=== PATIENT | female | born 1980 | race Caucasian/White ===

== ENCOUNTER 2016-10-21 16:38 | Emergency (ER) | payer OTHER ==
[~2016-10-21] VITALS: Ht 165.1 cm; Wt 74.8 kg
[2016-10-21 17:18] LABS: MEAN PLATELET VOLUME 9.4 FL (7.4-10.4); RED BLOOD COUNT 3.49 10^6/uL (4.35-5.85); RED CELL DISTRIBUTION WIDTH 13.6 % (10.0-14.5); WHITE BLOOD COUNT 11.1 10^3/uL (4.3-11.0)
[2016-10-21] MEDS ORDERED: TETANUS,DIPTH,PERTUSS P/F (BOOSTRIX) 0.5 ML VIAL IM ONE (17:18)
[2016-10-21] MEDS ORDERED: ceFAZolin 1,000 MG (ANCEF) VIAL ONE (17:19)
[2016-10-21] MEDS ORDERED: ceFAZolin 2 GM/50 ML NS 50 ML IV ONE (17:30)
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
[2016-10-21 17:34] LABS: ALANINE AMINOTRANSFERASE 29 U/L (0-55); ALBUMIN 3.1 G/DL (3.2-4.5); ANION GAP 10 MMOL/L (5-14); ASPARTATE AMINO TRANSFERASE 23 U/L (5-34); BILIRUBIN,DIRECT 0.1 MG/DL (0.0-0.3); BILIRUBIN,INDIRECT 0.1 MG/DL; BILIRUBIN,TOTAL 0.2 MG/DL (0.1-1.0); BLOOD UREA NITROGEN 8 MG/DL (7-18); BUN/CREATININE RATIO 13; CALCIUM 8.2 MG/DL (8.5-10.1); CARBON DIOXIDE 17 MMOL/L (21-32); CHLORIDE 111 MMOL/L (98-107); CREATININE SERUM 0.62 MG/DL (0.60-1.30); GFR ESTIMATED > 60; GLUCOSE 121 MG/DL (70-105); POTASSIUM 3.6 MMOL/L (3.6-5.0); SODIUM 138 MMOL/L (135-145); TOTAL PROTEIN 5.7 G/DL (6.4-8.2)
[2016-10-21] MEDS ORDERED: fentaNYL INJECTION 100 MCG/2 ML AMP ONE (17:36)
[2016-10-21 17:38] LABS: ALCOHOL < 10 MG/DL (<10)
[2016-10-21] MEDS ORDERED: fentaNYL INJECTION 100 MCG/2 ML AMP IVP ONE ×4 (17:45→19:15)
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
[2016-10-21 17:52] LABS: BILIRUBIN,URINE NEGATIVE (NEGATIVE); KETONES,URINE NEGATIVE (NEGATIVE); LEUKOCYTE ESTERASE ,URINE NEGATIVE (NEGATIVE); NITRITE,URINE NEGATIVE (NEGATIVE); PH,URINE 6 (5-9); PROTEIN,URINE NEGATIVE (NEGATIVE); UROBILINOGEN,URINE NORMAL (NORMAL)
[2016-10-21 18:01] LABS: YEAST,URINE MODERATE /HPF
[2016-10-21] MEDS ORDERED: NS IV 1000 ML 1,000 ML IV ONE ×2 (18:18→18:44)
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
[2016-10-21] MEDS ORDERED: AMPICILLIN/SULBACTAM INJECTION 3 GM in NS (IVPB) 100 ML IV ONE (18:45)
[2016-10-21 19:21] VITALS: BP 147/90
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
== END 2016-10-21 19:21 | disposition short-term general hospital (02) ==
LOC: EDUNIT# 16:38 → ER 16:52
DX: O9A.211 Injury, poisoning and certain other consequences of external causes complicating pregnancy, first trimester (principal); S92.101A Unspecified fracture of right talus, initial encounter for closed fracture; Z3A.14 14 weeks gestation of pregnancy; V44.5XXA Car driver injured in collision with heavy transport vehicle or bus in traffic accident, initial encounter
CPT/HCPCS: 29515; 71010; 73565; 73610; 76815; 80048; 80076; 80320; 81000; 84703; 85027; 86850; 86900; 86901; 90715

== ENCOUNTER 2017-01-23 09:20 | Outpatient (CLI) | payer OTHER, MEDICAID ==
[2017-01-23] VITALS (13 sets, daily range): BP systolic 112–137; BP diastolic 68–79
[~2017-01-23] VITALS: Ht 165.1 cm; Wt 74.9 kg
[2017-01-23] MEDS ORDERED: D5 LR IV SOLUTION 1,000 ML IV ONE (10:03)
[2017-01-23] MEDS ORDERED: MAGNESIUM SULFATE DRIP 500 ML IV ONE (10:33)
[2017-01-23] MEDS ORDERED: MAGNESIUM 4 GM/100 ML IVPB 100 ML IV ONE ×2 (10:33→11:00)
[2017-01-23 10:37] LABS: BASOPHILS # (AUTO) 0.1 10^3/uL (0.0-0.1); BASOPHILS % (AUTO) 0 % (0-10); EOSINOPHILS # (AUTO) 0.2 10^3/uL (0.0-0.3); EOSINOPHILS % (AUTO) 1 % (0-10); LYMPHOCYTES # (AUTO) 1.3 X 10^3 (1.0-4.0); LYMPHOCYTES % (AUTO) 8 % (12-44); MEAN CORPUSCULAR HEMOGLOBIN 28 PG (25-34); MEAN CORPUSCULAR HGB CONC 32 G/DL (32-36); MEAN CORPUSCULAR VOLUME 88 FL (80-99); MEAN PLATELET VOLUME 9.7 FL (7.4-10.4); MONOCYTES # (AUTO) 1.4 X 10^3 (0.0-1.0); MONOCYTES % (AUTO) 9 % (0-12); NEUTROPHILS # (AUTO) 12.6 X 10^3 (1.8-7.8); NEUTROPHILS % (AUTO) 81 % (42-75); PLATELET COUNT 326 10^3/uL (130-400); RED BLOOD COUNT 3.53 10^6/uL (4.35-5.85); RED CELL DISTRIBUTION WIDTH 15.9 % (10.0-14.5); WHITE BLOOD COUNT 15.5 10^3/uL (4.3-11.0)
[2017-01-23] MEDS ORDERED: MAGNESIUM SULFATE DRIP 500 ML IV SCH (11:00)
[2017-01-23] MEDS ORDERED: AZITHROMYCIN INJECTION 500 MG in NS (IVPB) 250 ML IV ONE (11:00)
[2017-01-23 11:11] LABS: BAND NEUTROPHILS 3 %; BASOPHILS % (MANUAL) 1 %; EOSINOPHILS % (MANUAL) 1 %; LYMPHOCYTES % (MANUAL) 15 %; NEUTROPHILS % (MANUAL) 73 %; REACTIVE LYMPHOCYTES 2 %
[2017-01-23 11:12] LABS: POIKILOCYTOSIS SLIGHT
[2017-01-23 11:13] LABS: ANISOCYTOSIS MODERATE
[2017-01-23 11:20] LABS: ALANINE AMINOTRANSFERASE 20 U/L (0-55); ANION GAP 9 MMOL/L (5-14); ASPARTATE AMINO TRANSFERASE 19 U/L (5-34); BILIRUBIN,TOTAL 0.4 MG/DL (0.1-1.0); BLOOD UREA NITROGEN 9 MG/DL (7-18); BUN/CREATININE RATIO 16; CALCIUM 8.6 MG/DL (8.5-10.1); CARBON DIOXIDE 21 MMOL/L (21-32); CHLORIDE 108 MMOL/L (98-107); CREATININE SERUM 0.55 MG/DL (0.60-1.30); GFR ESTIMATED > 60; GLUCOSE 87 MG/DL (70-105); POTASSIUM 3.7 MMOL/L (3.6-5.0); SODIUM 138 MMOL/L (135-145); TOTAL PROTEIN 6.1 GM/DL (6.4-8.2)
[2017-01-23] MEDS ORDERED: AZITHROMYCIN 250 MG TAB (ZITHROMAX) PO NR (11:28)
[2017-01-23] MEDS ORDERED: MAGNESIUM 2 GM/50 ML IVPB 50 ML IV ONE (13:24)
[2017-01-23] MEDS ORDERED: MAGNESIUM 1 GM/100 ML IVPB 100 ML IV SCH (13:45)
[2017-01-23] MEDS ORDERED: BUTORPHANOL INJ 2 MG/ML (STADOL) VIAL IV ONE (13:45)
--- NOTE | 2017-01-23 13:51 | Discharge Instructions ---
Discharge Instructions Discharge Medications New, Converted or Re-Newed RX: Other Orders-Post D/C & Referrals patient is being transferred to the care of Dr. Bandar Bradford at [facility] in [place] secondary to labor with dichorionic diamniotic twins and with likely ruptured membranes and possible endomyometritis RANDY COBOS MD Jan 23, 2017 13:51
--- NOTE | 2017-01-23 13:58 | History & Physical ---
History and Physical Date Seen by Provider: Jan 23, 2017 Time Seen by Provider: 13:52 this serves as an admit H&P as well as a discharge summary this patient is a 36-year-old white female patient just past 26 weeks gestation with dichorionic diamniotic twins. She is seeing Dr. Bandar Bradford high-risk OB secondary to oligohydramnios for twin B. He was recently admitted for observation at [facility] secondary to vaginal bleeding. She was in the hospital for 3 or 4 days and was deepened release yesterday. He was seen in my clinic today for complaint of vaginal bleeding and no contractions. Was sent to labor and delivery where she was found be bree every 2 minutes her cervix is dilated to 3 cm. She was started on IV magnesium with a 4 g bolus and then running at 2 g an hour which did space out her contractions for a while. Her contractions are picked up. She has been having fairly copious fluid from the vagina which nitrazine was positive and fern test was obtained that was negative. One note was that there were exceedingly high number of white blood cells on the slide. During exam is noted that there is a odor to the discharge consistent with an endomyometritis. Patient complains of increasing pain and pressure with the contractions. Patient's care was reviewed with Dr. Bandar Bradford who agreed to accept the patient in transfer. We did increase her magnesium to 4 g an hour after giving additional 2 g bolus. She was given 500 mg of azithromycin on admission. Patient reports having received IM steroids injections 3 while at [place] over the weekend. Allergies are penicillin Medications are per the [facility] Past medical history, past surgical history, genetic history, family history, social histories are per the antepartum record HEENT exam is normal patient does appear tired and uncomfortable Supple no lymphadenopathy. The abdomen is gravid soft and nontender. Extremities show no clubbing cyanosis. There is no Homans sign. Pelvic exam reveals a cervix 2-37 Ms. dilated, 50 percent effaced, -1 to -2 station with vertex presentation no membranes are palpable. monitor shows contractions now every 2-3 minutes patient is experiencing discomfort and pressure with contractions. We'll heart rates are normal Assessment and plan 26+ week intrauterine with dichorionic diamniotic twins in a patient with oligohydramnios for twin B likely with endomyometritis and possibly with premature rupture membranes obviously in labor not responding to IV magnesium. Dr. Bradford of [facility] has agreed to accept patient in transfer and that is being arranged currently. 26+ week intrauterine with dichorionic diamniotic twins in labor complicated by oligohydramnios for twin B, and with likely rupture membranes and with possible endomyometritis Allergies and Home Medications Allergies Coded Allergies: Penicillins (Verified Allergy, Unknown, 05/23/07) RANDY COBOS MD Jan 23, 2017 1:58 pm
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
== END 2017-01-23 14:35 | disposition home or self-care (01) ==
LOC: WSo 09:20 → LDRP 09:20 → WSo 14:35
PROVIDERS: ATTEND Obstetrics & Gynecology
DX: O30.042 Twin pregnancy, dichorionic/diamniotic, second trimester (principal); Z3A.26 26 weeks gestation of pregnancy; O41.02X1 Oligohydramnios, second trimester, fetus 1; O60.02 Preterm labor without delivery, second trimester; N71.9 Inflammatory disease of uterus, unspecified
CPT/HCPCS: 36415; 76815; 80053; 85007; 85027; 89060; 96361; 96374; 96375; 96376; 99214

== ENCOUNTER 2018-03-02 16:40 | Emergency (ER) | payer BC, MEDICAID, OTHER ==
[~2018-03-02] VITALS: Ht 165.1 cm; Wt 74.9 kg
[2018-03-02] MEDS ORDERED: KETOROLAC 30 MG/ML VIAL IVP ONE (17:00)
[2018-03-02] MEDS ORDERED: fentaNYL INJECTION 100 MCG/2 ML AMP IVP ONE (17:00)
[2018-03-02] MEDS ORDERED: ONDANSETRON 4 MG/2 ML (SDV) Z0FRAN IVP ONE (17:00)
--- NOTE | 2018-03-02 17:04 | ED Abdominal Pain ---
General Chief Complaint: Abdominal/GI Problems Stated Complaint: NASUEA, ABD PAIN Source of Information: Patient Exam Limitations: No Limitations History of Present Illness Date Seen by Provider: Mar 02, 2018 Time Seen by Provider: 17:02 Initial Comments To ER per private vehicle with reports of epigastric abdominal pain radiating through to her back associated with nausea and vomiting. She's had this about a year ago. It seemed to go away. Last night she had some pain in the mid back that radiated through to her epigastric region with a bit of nausea. At about 2 PM today she had a grilled cheese sandwich and shortly thereafter had intense pain nausea and vomiting. After the vomiting she did feel somewhat better but she still is nauseous and with the pain. Timing/Duration: 4-6 Hours Severity/Quality: Moderate Location: Epigastric Radiation: No Radiation Activities at Onset: None Associated Symptoms: Nausea/Vomiting Allergies and Home Medications Allergies Coded Allergies: Penicillins (Verified Allergy, Unknown, 03/02/18) Home Medications Ciprofloxacin HCl 500 Mg Tablet, 500 MG PO BID Prescribed by: MERARI HAYES on 03/02/181752 Hydrocodone/Acetaminophen 1 Each Tablet, 1 EACH PO Q4H PRN for PAIN-MODERATE Prescribed by: MERARI HAYES on 03/02/181752 Metronidazole 500 Mg Tablet, 500 MG PO TID Prescribed by: MERARI HAYES on 03/02/181752 Ondansetron 8 Mg Tab.rapdis, 8 MG PO Q6H PRN for NAUSEA/VOMITING-1ST LINE Prescribed by: MERARI HAYES on 03/02/181752 Patient Home Medication List Home Medication List Reviewed: Yes Review of Systems Review of Systems Constitutional: see HPI EENTM: No Symptoms Reported Respiratory: No Symptoms Reported Cardiovascular: No Symptoms Reported Gastrointestinal: See HPI, Abdominal Pain, Nausea Genitourinary: No Symptoms Reported Musculoskeletal: no symptoms reported Skin: no symptoms reported Psychiatric/Neurological: No Symptoms Reported Endocrine: No Symptoms Reported Past Vggqmvg-Uklolc-Qvesaw Hx Patient Social History Alcohol Use: Denies Use Recreational Drug Use: No Smoking Status: Never a Smoker 2nd Hand Smoke Exposure: No Recent Foreign Travel: No Contact w/Someone Who Travel: No Recent Hopitalizations: No Physical Abuse: No Sexual Abuse: No Mistreated: No Fear: No Immunizations Up To Date Tetanus Booster (TDap): Unknown Date of Influenza Vaccine: Feb 12, 2018 Past Medical History Surgeries: Yes Adenoidectomy, Section, Orthopedic, Tonsillectomy Respiratory: No Cardiac: No Neurological: No Reproductive Disorders: No Gastrointestinal: No Musculoskeletal: No Endocrine: No Psychosocial: No Integumentary: No Blood Disorders: No Family Medical History No Pertinent Family Hx Physical Exam Vital Signs Vital Signs - First Documented 03/02/18 16:43 Temp 98.3 Pulse 118 Resp 16 B/P (MAP) 152/102 (119) Pulse Ox 99 Capillary Refill : Height/Weight/BMI Height: 5'5.00" Weight: 165lbs. 2.0oz. 74.708166gz; 27.5 BMI Method:Stated General Appearance: WD/WN, no apparent distress HEENT: PERRL/EOMI, normal ENT inspection Neck: non-tender, full range of motion Respiratory: normal breath sounds, no respiratory distress, no accessory muscle use Cardiovascular: regular rate, rhythm, no murmur Gastrointestinal: normal bowel sounds, soft, tenderness Neurologic/Psychiatric: alert, normal mood/affect, oriented x 3 Skin: normal color, warm/dry Progress/Results/Core Measures Results/Orders Lab Results Laboratory Tests Test 03/02/18 16:45 03/02/18 16:55 Range/Units Urine Color YELLOW Urine Clarity VERY CLOUDY H Urine pH 5 5-9 Urine Specific [place] 1.025 H 1.016-1.022 Urine Protein 1+ H NEGATIVE Urine Glucose (UA) NEGATIVE NEGATIVE Urine Ketones 1+ H NEGATIVE Urine Nitrite NEGATIVE NEGATIVE Urine Bilirubin 1+ H NEGATIVE Urine Urobilinogen 1 NORMAL MG/DL Urine Leukocyte Esterase 1+ H NEGATIVE Urine RBC (Auto) NEGATIVE NEGATIVE Urine RBC NONE /HPF Urine WBC 0-2 /HPF Urine Squamous Epithelial Cells 10-25 H /HPF Urine Crystals NONE /LPF Urine Bacteria TRACE /HPF Urine Casts NONE /LPF Urine Mucus NEGATIVE /LPF Urine Culture Indicated NO White Blood Count 10.2 4.3-11.0 10^3/uL Red Blood Count 5.06 4.35-5.85 10^6/uL Hemoglobin 13.4 11.5-16.0 G/DL Hematocrit 40 35-52 % Mean Corpuscular Volume 78 L 80-99 FL Mean Corpuscular Hemoglobin 27 25-34 PG Mean Corpuscular Hemoglobin Concent 34 32-36 G/DL Red Cell Distribution Width 15.8 H 10.0-14.5 % Platelet Count 361 130-400 10^3/uL Mean Platelet Volume 9.4 7.4-10.4 FL Neutrophils (%) (Auto) 78 H 42-75 % Lymphocytes (%) (Auto) 16 12-44 % Monocytes (%) (Auto) 5 0-12 % Eosinophils (%) (Auto) 1 0-10 % Basophils (%) (Auto) 0 0-10 % Neutrophils # (Auto) 7.9 H 1.8-7.8 X 10^3 Lymphocytes # (Auto) 1.6 1.0-4.0 X 10^3 Monocytes # (Auto) 0.5 0.0-1.0 X 10^3 Eosinophils # (Auto) 0.1 0.0-0.3 10^3/uL Basophils # (Auto) 0.0 0.0-0.1 10^3/uL Sodium Level 139 135-145 MMOL/L Potassium Level 3.5 L 3.6-5.0 MMOL/L Chloride Level 105 98-107 MMOL/L Carbon Dioxide Level 23 21-32 MMOL/L Anion Gap 11 5-14 MMOL/L Blood Urea Nitrogen 7 7-18 MG/DL Creatinine 0.75 0.60-1.30 MG/DL Estimat Glomerular Filtration Rate > 60 BUN/Creatinine Ratio 9 Glucose Level 113 H 70-105 MG/DL Calcium Level 9.2 8.5-10.1 MG/DL Corrected Calcium 8.9 8.5-10.1 MG/DL Total Bilirubin 0.7 0.1-1.0 MG/DL Aspartate Amino Transf (AST/SGOT) 53 H 5-34 U/L Alanine Aminotransferase (ALT/SGPT) 35 0-55 U/L Alkaline Phosphatase 139 H 40-136 U/L Total Protein 7.6 6.4-8.2 GM/DL Albumin 4.4 3.2-4.5 GM/DL Lipase 34 8-78 U/L My Orders Orders - MERARI HAYES APRN Cbc With Automated Diff (03/02/18 17:00) Comprehensive Metabolic Panel (03/02/18 17:00) Lipase (03/02/18 17:00) Ua Culture If Indicated (03/02/18 17:00) Iv Heplock-Insert (Order) (03/02/18 17:00) Ketorolac Injection (Toradol Injection) (03/02/18 17:00) Ondansetron Injection (Zofran Injectio (03/02/18 17:00) Fentanyl Injection (Sublimaze Injection (03/02/18 17:00) Us Gallbladder [id number] (03/02/18 17:05) Medications Given in ED Current Medications Medications Dose Ordered Sig/Myrna Route Start Time Stop Time Status Last Admin Dose Admin Fentanyl Citrate 50 mcg ONCE ONCE IVP 03/02/18 17:00 03/02/18 17:01 DC 03/02/18 17:08 50 MCG Ketorolac Tromethamine 30 mg ONCE ONCE IVP 03/02/18 17:00 03/02/18 17:01 DC 03/02/18 17:08 30 MG Ondansetron HCl 8 mg ONCE ONCE IVP 03/02/18 17:00 03/02/18 17:01 DC 03/02/18 17:07 8 MG Vital Signs/I&O 03/02/18 03/02/18 16:43 18:15 Temp 98.3 Pulse 118 80 Resp 16 16 B/P (MAP) 152/102 (119) 108/88 (95) Pulse Ox 99 100 Departure Communication (Admissions) I spoke with Dr. Gandhi and I will have the patient follow-up with him next week. She'll call his office Monday for an appointment. Impression Primary Impression: Cholelithiasis Disposition: 01 HOME, SELF-CARE Condition: Stable Departure-Patient Inst. Decision time for Depature: 17:26 Referrals: ELENITA MONTELONGO BRETT D DO JENKINS, XAVIER M MD KIDO, TAKAAKI MD ORENDER, JACQUELINE S DO (PCP/Family) Primary Care Physician Patient Instructions: Gallstones Add. Discharge Instructions: 1. Clear liquids only for the next 24 hours. After that, a very bland diet no greasy foods no spicy foods and no milk products. Call Dr. Gandhi office on Monday for an appointment next week area (you may see any surgeon you would like, Dr. Gandhi is on-call and that's who I spoke to today about you). Pain medication nausea medication and antibiotics as directed in the meantime. Return to ER for any fevers or uncontrollable nausea vomiting or intolerable pain. All discharge instructions reviewed with patient and/or family. Voiced understanding. Scripts Metronidazole (Flagyl) 500 Mg Tablet 500 MG PO TID, #15 TAB Prov: MERARI HAYES APRN 03/02/18 Ciprofloxacin HCl (Cipro) 500 Mg Tablet 500 MG PO BID, #10 TAB Prov: MERARI HAYES APRN 03/02/18 Hydrocodone/Acetaminophen ([place] 5-325 Tablet) 1 Each Tablet 1 EACH PO Q4H PRN for PAIN-MODERATE MDD 10, #30 TAB Prov: MERARI HAYES APRN 03/02/18 Ondansetron (Zofran Odt) 8 Mg Tab.rapdis 8 MG PO Q6H PRN for NAUSEA/VOMITING-1ST LINE, #20 TAB Prov: MERARI HAYES APRN 03/02/18 Copy Copies To 1: HUSSAIN GANDHI MD Copies To 2: NADIA MAYA PETER J APRN Mar 02, 2018 17:04
[2018-03-02 17:06] LABS: CLARITY,URINE VERY CLOUDY; COLOR,URINE YELLOW; GLUCOSE, URINE (UA) NEGATIVE (NEGATIVE); KETONES,URINE 1+ (NEGATIVE); LEUKOCYTE ESTERASE ,URINE 1+ (NEGATIVE); NITRITE,URINE NEGATIVE (NEGATIVE); PH,URINE 5 (5-9); PROTEIN,URINE 1+ (NEGATIVE); UROBILINOGEN,URINE 1 MG/DL (NORMAL)
[2018-03-02 17:07] LABS: BASOPHILS % (AUTO) 0 % (0-10); EOSINOPHILS # (AUTO) 0.1 10^3/uL (0.0-0.3); EOSINOPHILS % (AUTO) 1 % (0-10); HEMATOCRIT 40 % (35-52); HEMOGLOBIN 13.4 G/DL (11.5-16.0); LYMPHOCYTES # (AUTO) 1.6 X 10^3 (1.0-4.0); LYMPHOCYTES % (AUTO) 16 % (12-44); MEAN CORPUSCULAR HEMOGLOBIN 27 PG (25-34); MEAN CORPUSCULAR HGB CONC 34 G/DL (32-36); MEAN CORPUSCULAR VOLUME 78 FL (80-99); MEAN PLATELET VOLUME 9.4 FL (7.4-10.4); MONOCYTES # (AUTO) 0.5 X 10^3 (0.0-1.0); MONOCYTES % (AUTO) 5 % (0-12); NEUTROPHILS # (AUTO) 7.9 X 10^3 (1.8-7.8); NEUTROPHILS % (AUTO) 78 % (42-75); PLATELET COUNT 361 10^3/uL (130-400); RED BLOOD COUNT 5.06 10^6/uL (4.35-5.85); RED CELL DISTRIBUTION WIDTH 15.8 % (10.0-14.5); WHITE BLOOD COUNT 10.2 10^3/uL (4.3-11.0)
[2018-03-02 17:17] LABS: BACTERIA,URINE TRACE /HPF; BILIRUBIN,URINE 1+ (NEGATIVE); WBC,URINE 0-2 /HPF
[2018-03-02 17:19] LABS: ALANINE AMINOTRANSFERASE 35 U/L (0-55); ALBUMIN 4.4 GM/DL (3.2-4.5); ALKALINE PHOSPHATASE 139 U/L (40-136); BILIRUBIN,TOTAL 0.7 MG/DL (0.1-1.0); BUN/CREATININE RATIO 9; CALCIUM 9.2 MG/DL (8.5-10.1); CARBON DIOXIDE 23 MMOL/L (21-32); CHLORIDE 105 MMOL/L (98-107); CREATININE SERUM 0.75 MG/DL (0.60-1.30); GFR ESTIMATED > 60; GLUCOSE 113 MG/DL (70-105); LIPASE 34 U/L (8-78); POTASSIUM 3.5 MMOL/L (3.6-5.0); SODIUM 139 MMOL/L (135-145); TOTAL PROTEIN 7.6 GM/DL (6.4-8.2)
--- NOTE | 2018-03-02 17:44 | Diagnostic Imaging Report ---
PROCEDURE: US Gallbladder. TECHNIQUE: Multiple real-time grayscale images were obtained over the right upper quadrant in various projections. INDICATION: Epigastric pain. COMPARISON: There are no prior studies available for comparison. FINDINGS: There are two gallstones within the gallbladder. The gallbladder wall is also slightly thickened measuring 3.7 mm (normal 3.0 mm or less). There is no pericholecystic fluid to suggest acute cholecystitis, however. The common bile duct was not well visualized. The liver and right kidney are unremarkable. The pancreas and the proximal aorta were obscured by bowel gas. There is no mass or free fluid collection evident. IMPRESSION: 1. There is cholelithiasis and slight thickening of the wall of the gallbladder. There is no pericholecystic fluid to suggest acute cholecystitis, however. 2. If clinical concern regarding an underlying abnormality of the gallbladder persists, then a nuclear medicine hepatobiliary scan would be recommended for further study. 3. The common bile duct was not well visualized. Dictated by: Dictated on workstation # [id number]
[2018-03-02] MEDS ORDERED: METR500T PO (17:53)
[2018-03-02] MEDS ORDERED: HYDR-4226 PO (17:53)
[2018-03-02] MEDS ORDERED: CIPR-225 PO (17:53)
[2018-03-02] MEDS ORDERED: ONDA8TAB9 PO (17:53)
[2018-03-02 18:15] VITALS: BP 108/88
== END 2018-03-02 18:15 | disposition home or self-care (01) ==
LOC: EDUNIT# 16:40 → ER 16:41
DX: K80.20 Calculus of gallbladder without cholecystitis without obstruction (principal); Z88.0 Allergy status to penicillin; Z98.890 Other specified postprocedural states; Z90.89 Acquired absence of other organs
CPT/HCPCS: 36415; 76705; 80053; 81000; 83690; 85025

== ENCOUNTER 2018-03-07 05:30 | Outpatient (CLI) | payer OTHER ==
[~2018-03-07] VITALS: Ht 165.1 cm; Wt 81.7 kg
[~2018-03-07 05:30] MED LIST: CIPR-225 PO; HYDR-4226 PO; METR500T PO; ONDA8TAB9 PO
[2018-03-09] MEDS ORDERED: ACHD5005 PO (10:05)
== END 2018-03-07 14:58 | disposition home or self-care (01) ==
LOC: PREOP 05:30
PROVIDERS: ATTEND Surgery
DX: Z01.818 Encounter for other preprocedural examination (principal)

== ENCOUNTER 2018-03-09 07:40 | Day surgery (SDC) | payer OTHER ==
[~2018-03-09] VITALS: Ht 165.1 cm; Wt 81.7 kg
[2018-03-09] MEDS ORDERED: BUP/EPI 0.5% 1:200,000 (SENSORCAINE) 30 ML VIAL ONE (08:21)
[2018-03-09] MEDS ORDERED: ONDANSETRON 4 MG/2 ML (SDV) Z0FRAN ONE ×3 (08:27→10:56)
[2018-03-09] MEDS ORDERED: FAMOTIDINE 20MG/2ML IV (PEPCID) ONE (08:28)
[2018-03-09] MEDS ORDERED: fentaNYL INJECTION 100 MCG/2 ML AMP ONE ×2 (08:30→10:03)
[2018-03-09] MEDS ORDERED: LEVOFLOXACIN 500 MG/100 ML IV 100 ML IV ONE (08:30)
[2018-03-09] MEDS ORDERED: LIDOCAINE PF 2% 5 ML (XYLOCAINE) VIAL ONE (08:30)
[2018-03-09] MEDS ORDERED: proPOfol 200 MG/20 ML (DIPRIVAN) VIAL IV ONE (08:30)
[2018-03-09] MEDS ORDERED: ROCURONIUM 10 MG/ML 5 ML SYRINGE IV ONE (08:30)
[2018-03-09] MEDS ORDERED: MIDAZOLAM 2 MG/2 ML (VERSED) VIAL ONE (08:32)
[2018-03-09] MEDS ORDERED: LEVOFLOXACIN 500 MG/100 ML IV 100 ML ONE (08:35)
--- NOTE | 2018-03-09 08:35 | Progress Note-Pre Operative ---
Pre-Operative Progress Note H&P Reviewed The H&P was reviewed, patient examined and no changes noted. Date Seen by Provider: Mar 05, 2018 Time Seen by Provider: 14:00 Date H&P Reviewed: Mar 09, 2018 Time H&P Reviewed: 08:35 Pre-Operative Diagnosis: Gallstones HUSSAIN GANDHI MD Mar 09, 2018 08:35
[2018-03-09] MEDS: LACTATED RINGERS 1,000 ML IV PRN ×3 (08:42→10:16)
[2018-03-09] MEDS: metroNIDAZOLE 500MG/100ML IVPB 100 ML ONE ×2 (08:43→08:50)
[2018-03-09] MEDS ORDERED: FAMOTIDINE 20MG/2ML IV (PEPCID) IV ONE (08:45)
[2018-03-09] MEDS ORDERED: ONDANSETRON 4 MG/2 ML (SDV) Z0FRAN IV ONE (08:45)
[2018-03-09] MEDS ORDERED: SEVOFLURANE (ULTANE) 15 ML INHAL SOLN ONE ×4 (09:14→09:55)
[2018-03-09] MEDS ORDERED: DEXAMETHASONE 10 MG/ML (DECADRON) 1 ML VIAL ONE (09:14)
[2018-03-09 09:43] VITALS: BP 125/89
[2018-03-09] MEDS ORDERED: GLYCOPYRROLATE 0.2 MG/ML (ROBINUL) 2 ML VIAL ONE (09:54)
[2018-03-09] MEDS ORDERED: NEOSTIGMINE 1 MG/ML 5 ML SYRINGE ONE (09:54)
--- NOTE | 2018-03-09 10:04 | Operative Report ---
Operative Report Date of Procedure/Surgery Mar 09, 2018 Surgeon (s) HUSSAIN GANDHI MD Physicist [employer] (s): Armen Mclean ( Med Student III) Post-Operative Diagnosis Gallstones Single stone within the common bile duct Procedure Performed Robotic-assisted cholecystectomy Intraoperative cholangiogram Description of Procedure Anesthesia Type: General Estimated blood loss (mL): minimal Specimen(s) collected/removed Gallbladder Description of the Procedure Indication for the procedure: This lady presented with symptomatic gallstones with thickening of the gallbladder wall and slight elevation of alkaline phosphatase, concerning for choledocholithiasis. She was offered cholecystectomy using robotic assistance with cholangiogram. Should stones be found in the common bile duct, the role of therapeutic ERCP was discussed with her. Informed consent was obtained after reviewing the operative details and complications of wound infection and bile leak. Description of the procedure: She was placed supine on the operative table and general anesthesia induced. Ancef and Flagyl were administered intravenously as prophylaxis against wound infection sequential compression devices were placed around her legs, to minimize the risk of venous thrombosis. Abdomen was prepared and draped in the usual sterile manner. A subumbilical incision was made and pneumoperitoneum established using Veress needle. Intra- abdominal pressure was maintained at 15 mmHg, using carbon dioxide insufflation. A 12 mm trocar was placed and anatomy visualized using the high definition, 3-dimensional laparoscope associated with da Erika system. Under direct view, I placed an 8 mm trocar over each side of the abdomen, followed by a 5 mm trocar over the left upper quadrant. She was then turned into reverse Trendelenburg position, with the right side tilted up. The robotic system was then docked into place. Laparoscopic survey confirmed a thickened gallbladder, packed with stones and omentum along with the pylorus of the stomach, being adherent to the body of the gallbladder. The fundus of the gallbladder was retracted cephalad and the pylorus taken down by sharp dissection without any iatrogenic injury. The infundibulum was then grasped with Cadiere forceps and the thickened tissue around Calot's triangle incised using the hook cautery, delineating the cystic duct and artery. Cholangiogram was obtained using taut catheter. It revealed normal anatomy with a solitary stone. However, the contrast flowed slowly into the duodenum. The catheter was removed and the cystic duct controlled using locking clips. Cystic artery was divided between similar clips. Cholecystectomy was then completed using the cautery. The gallbladder was then placed in an Endo Catch bag and removed via the subumbilical trocar site. The fascia over this incision was closed using #1 Vicryl. Skin incisions were closed using 4-0 Vicryl, in a 50 left fashion. 0.5 percent Marcaine with epinephrine was infiltrated along the incisions, both preemptively and at the conclusion of the operation. She tolerated the procedure well, was extubated and taken to the recovery room in a stable condition. Findings of the Procedure See operative report Allergies and Home Medications Allergies Coded Allergies: Penicillins (Verified Allergy, Unknown, 03/02/18) Home Medications No Active Prescriptions or Reported Meds Patient Home Medication List Home Medication List Reviewed: Yes HUSSAIN GANDHI MD Mar 09, 2018 10:04
[2018-03-09] MEDS ORDERED: ACHD5005 PO (10:05)
--- NOTE | 2018-03-09 10:05 | Discharge Inst-Simple/Standard ---
Discharge Inst-Standard Discharge Medications New, Converted or Re-Newed RX: RX on Chart Patient Instructions/Follow Up Plan of Care/Instructions/FU: To stay on clear liquids today. Nothing by mouth from midnight. ERCP anticipated tomorrow. Please give 1 extra liter of lactated ringer prior to discharge Activity as Tolerated: Yes Discharge Diet: Other Diet HUSSAIN GANDHI MD Mar 09, 2018 10:05
[2018-03-09] MEDS ORDERED: morphine INJ 10 MG/ML 1ML (SYR OR VIAL) ONE (10:41)
--- NOTE | 2018-03-09 10:59 | Diagnostic Imaging Report ---
INDICATION: Cholecystectomy. Intraoperative cholangiogram. COMPARISON: 03/02/2018 FINDINGS: Multiple intraoperative image intensifier views of the upper abdomen were obtained during intraoperative cholangiogram. Images provided show filling defect within the common bile duct. This is nonobstructed and may be on the basis of choledocholithiasis versus small bubble of gas. Contrast empties into the small bowel as expected. Please note, interpreting radiologist was not present during the procedure. TOTAL FLUOROSCOPY TIME: 20.8 seconds. IMPRESSION: 1. Fluoroscopic guidance provided during intraoperative cholangiogram as described above. Dictated by: Dictated on workstation # [id number]
[2018-03-09 11:16] VITALS: BP 127/83
[2018-03-09 11:45] VITALS: BP 131/99
[2018-03-09] MEDS ORDERED: HYDROmorphone 2 MG/ML VIAL (DILAUDID) IV ONE (11:45)
[2018-03-09] MEDS ORDERED: morphine INJ 10 MG/ML 1ML (SYR OR VIAL) IVP ONE (11:45)
[2018-03-09] MEDS ORDERED: PROMETHAZINE INJ 25 MG/ML (PHENERGAN) AMP IVP ONE (11:45)
[2018-03-09] MEDS ORDERED: ONDANSETRON 4 MG/2 ML (SDV) Z0FRAN IVP PRN (11:45)
[2018-03-09 12:20] VITALS: BP 124/70
--- NOTE | 2018-03-09 13:13 | Anesthesia-General Post-Op ---
General Patient Condition Mental Status/LOC: Same as Preop Cardiovascular: Satisfactory Nausea/Vomiting: Absent Respiratory: Satisfactory Pain: Controlled Complications: Absent Post Op Complications Complications None Follow Up Care/Instructions Patient Instructions None needed. Anesthesia/Patient Condition Patient Condition Patient was seen after the procedure and she was doing well, no complaints, stable vital signs, no apparent adverse anesthesia problems. CAROLINE LOPEZ DO Mar 09, 2018 13:13
[2018-03-09 14:00] VITALS: BP 124/70
== END 2018-03-09 14:00 | disposition home or self-care (01) ==
LOC: SDC 07:40
PROVIDERS: ATTEND Surgery
DX: K81.1 Chronic cholecystitis (principal); K21.9 Gastro-esophageal reflux disease without esophagitis; Z72.0 Tobacco use
CPT/HCPCS: 84703; 87081; 94664

== ENCOUNTER → 2018-09-20 | Outpatient (CLI) | payer OTHER ==
[~2018-09-20] MED LIST changes: +ACHD5005 PO
--- NOTE | 2018-09-20 14:39 | Diagnostic Imaging Report ---
CLINICAL INDICATION: Patient with thyroid nodules. COMPARISONS: Ultrasound of the thyroid gland dated 11/23/2015. FINDINGS: THYROID NODULES: There is a 9 mm x 5 mm x 6 mm heterogeneous hypoechoic nodule involving the inferior aspect of the right thyroid gland which demonstrates no significant central Doppler flow. This nodule previously measured 4 mm x 5 mm x 3 mm and is more hypoechoic. There is another 4 mm, in greatest dimension, heterogeneous hypoechoic nodule involving the mid to posterior aspect of the right thyroid gland which was not seen on the prior study and may be new. There are other smaller cystic appearing areas in the right thyroid gland again seen. THYROID GLAND: Besides the thyroid nodules, the thyroid gland has normal size, shape and echogenicity. The right lobe measures 4.8 cm x 1.4 cm x 1.5 cm and the left lobe measures 4.5 cm x 1.2 cm x 1.8 cm in their three dimensions. ISTHMUS: The isthmus is unremarkable and measures 2 mm in thickness. IMPRESSION: 1: There is interval increased size of the heterogeneous hypoechoic nodule involving the inferior pole of the right thyroid gland. 2: There is a 4 mm heterogeneous hypoechoic nodule involving the mid posterior aspect of the right thyroid gland which is not seen on the prior study and may be a new nodule. Dictated by: Dictated on workstation # [id number]
== END ==
LOC: RAD 12:28
PROVIDERS: ATTEND Otolaryngology Otolaryngology/Facial Plastic Surgery
DX: E04.2 Nontoxic multinodular goiter (principal)
CPT/HCPCS: 76536

== ENCOUNTER → 2018-11-02 | Outpatient (CLI) | payer OTHER | LOC: RAD 10:04 | PROVIDERS: ATTEND Otolaryngology Otolaryngology/Facial Plastic Surgery | DX: E04.1 Nontoxic single thyroid nodule (principal); Z53.8 Procedure and treatment not carried out for other reasons ==

== ENCOUNTER → 2021-11-05 | Outpatient (CLI) | payer BC, OTHER ==
--- NOTE | 2021-11-05 10:01 | Diagnostic Imaging Report ---
INDICATION: Routine screening. No prior mammograms are available for comparison. This is a baseline study. 2-D and 3-D bilateral screening mammography was performed with CAD. Both breasts are heterogeneously dense, limiting the sensitivity of mammography. There is a circumscribed density in the mid lower inner left breast retroareolar location which may represent a cyst. No other masses are seen. No malignant-appearing microcalcifications are identified. Axillae are unremarkable. IMPRESSION: Circumscribed density in the lower inner left breast retroareolar region. Further evaluation with ultrasound is recommended. ACR BI-RADS Category 0: Incomplete. (Needs additional imaging evaluation). Result letter will be mailed to the patient. Note: At least 10% of breast cancer is not imaged by mammography. BI-RADS Category 0 Dictated by: Dictated on workstation # [id number]
== END ==
LOC: RAD 08:59
PROVIDERS: ATTEND Obstetrics & Gynecology
DX: Z12.31 Encounter for screening mammogram for malignant neoplasm of breast (principal)
CPT/HCPCS: 77063; 77067

== ENCOUNTER → 2021-11-12 | Outpatient (CLI) | payer BC ==
--- NOTE | 2021-11-12 12:23 | Diagnostic Imaging Report ---
Indication: Left breast density. Patient presents for further evaluation. Correlation is made with the screening mammogram from 11/05/2021. Sonographic interrogation of the left breast retroareolar region was performed. There is a macrolobulated solid mass at the 9:00 location left breast 1 cm from the nipple measuring 1.0 x 0.7 x 1.1 cm. This corresponds to the density noted mammographically. This does show some posterior acoustic enhancement and features are most suggestive of a fibroadenoma. No internal vascularity is present. No other masses are identified. IMPRESSION: BI-RADS Category 3 Macrolobulated solid mass at the 9:00 retroareolar left breast, corresponding to the mammographic density. 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 Even so, follow-up left breast ultrasound in 6 months is recommended to show continued stability. ACR BI-RADS Category 3: Probably benign findings. Dictated by: Dictated on workstation # [id number]
== END ==
LOC: RAD 11:00
PROVIDERS: ATTEND Obstetrics & Gynecology
DX: N63.20 Unspecified lump in the left breast, unspecified quadrant (principal); R92.8 Other abnormal and inconclusive findings on diagnostic imaging of breast
CPT/HCPCS: 76641

== ENCOUNTER → 2022-05-26 | Outpatient (CLI) | payer BC ==
--- NOTE | 2022-05-26 10:33 | Diagnostic Imaging Report ---
INDICATION: Six-month follow-up left breast nodule. Sonographic interrogation 9:00 location left breast again demonstrates some lobulated, circumscribed solid nodule measuring 10 mm x 6 mm x 9 mm compared with 10 mm x 7 mm x 11 mm on prior. This shows posterior acoustic enhancement. No internal vascularity is seen. No new mass is detected. IMPRESSION: BI-RADS Category 3 Stable solid nodule 9:00 location left breast, again suggestive of a fibroadenoma. Continued follow-up ultrasound in 6 months is recommended to show continued stability. ACR BI-RADS Category 3: Probably benign findings. Dictated by: Dictated on workstation # [id number]
== END ==
LOC: RAD 08:51
PROVIDERS: ATTEND Obstetrics & Gynecology
DX: N63.20 Unspecified lump in the left breast, unspecified quadrant (principal)
CPT/HCPCS: 76641